=== PATIENT | female | born 2000 | race Hispanic/Latino ===

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

== ENCOUNTER 2022-01-04 11:11 | Emergency (ER) | payer BC ==
[~2022-01-04 11:11] MED LIST: Dexamethasone 4 MG TAB ONE
[2022-01-04 13:19] LABS: MONO NEGATIVE CONTROL ZONE White (Negative) (White); MONO POSITIVE CONTROL Pink Line (Positive) (PINK/RED); Mononucleosis POSITIVE (NEGATIVE)
== END 2022-01-04 13:50 | disposition home or self-care (01) ==
LOC: MADERS 11:11
DX: B27.90 Infectious mononucleosis, unspecified without complication (principal)
CPT/HCPCS: 36415; 86308; 87081; 87430; 99283; J8540